=== PATIENT | female | born 1980 | race Caucasian/White ===

== ENCOUNTER 2018-03-18 19:03 | Emergency (ER) | payer MEDICAID ==
[~2018-03-18] VITALS: Ht 162.6 cm; Wt 67.0 kg
[2018-03-18 19:06] VITALS: BP 136/88
[2018-03-18] MEDS ORDERED: HYDROcodone/APAP 5/325 TABLET PO STA (20:00)
[2018-03-18] MEDS ORDERED: HYDROcodone/APAP 5/325 TABLET ONE (20:03)
== END 2018-03-18 21:14 | disposition home or self-care (01) ==
LOC: ED 21:08
DX: S39.012A Strain of muscle, fascia and tendon of lower back, initial encounter (principal); S16.1XXA Strain of muscle, fascia and tendon at neck level, initial encounter; F17.200 Nicotine dependence, unspecified, uncomplicated; W01.0XXA Fall on same level from slipping, tripping and stumbling without subsequent striking against object, initial encounter; Y93.89 Activity, other specified; Y92.091 Bathroom in other non-institutional residence as the place of occurrence of the external cause; Y99.8 Other external cause status
CPT/HCPCS: 72050; 72072; 72110; 99284